=== PATIENT | male | born 1935 | race Caucasian/White ===

== ENCOUNTER → 2016-12-03 | Outpatient (CLI) | payer MEDICARE, OTHER ==
[~2016-12-03] MED LIST: BACTRIM DS1 TAB PO; CALCIUM WITH VIT D PO; CLARITIN10 MG PO; COMPAZINE10 MG PO; DELTASONE20 MG PO; GLUCOSAMINE-CH1 EA14 PO; NEURONTIN300 MG PO; PAIN & FEVER325 MG PO; RANITIDINE HCL150 M1 PO; THERA-VITE W/ B1 TAB PO; VITAMIN C500 M1 PO; VITAMIN D2000 UNIT PO; ZYLOPRIM300 MG PO; [UNRECOGNIZED DRUG - OTHER] PO
== END | disposition disaster alternative care site (69) ==
LOC: GRAD 08:45
DX: R22.31 Localized swelling, mass and lump, right upper limb (principal); R91.8 Other nonspecific abnormal finding of lung field

== ENCOUNTER → 2016-12-25 | Outpatient (CLI) | payer MEDICARE, OTHER | LOC: LHSC 17:10 | DX: M25.811 Other specified joint disorders, right shoulder (principal) ==

== ENCOUNTER → 2017-01-28 | Outpatient (CLI) | payer MEDICARE, OTHER ==
--- NOTE | ~2017-01-28 | ECHO ---
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 Normal LV/RV size and systolic function. The estimated left ventricular ejection fraction is 60-65%. No pericardial effusion. Procedure Type of Study TTE procedure:2D Echocardiogram. Procedure Date Date: 01/28/2017 Start: 12:13 PM Study Location: Echo Lab Technical Quality: Good visualization Indications:High Risk Medication Use. Appropriate Use Criteria: 8 Patient Status: Routine Rhythm: NSR HR: 66 bpm BP: 171/74 mmHg M-Mode/2D Measurements LV Diastolic Dimension: 3.99 cm LV Systolic Dimension: 2.93 cm LV Septum Diastolic: 1.37 cm LV PW Diastolic: 1.32 cm AO Root Dimension: 3.2 cm LA Dimension: 3.1 cm RV Diastolic Dimension: 3.33 cm EF Estimated: 60 % LVOT: 2.2 cm Findings Left Ventricle The left ventricle is normal in size . Pericardial Effusion No pericardial effusion. Signature dtt: EULALIO DIALLO dtd: 01/28/17 1213 Physician Self Edit
== END | disposition disaster alternative care site (69) ==
LOC: GKIC 09:37 → GCAR 12:00
DX: C85.18 Unspecified B-cell lymphoma, lymph nodes of multiple sites (principal); M79.89 Other specified soft tissue disorders; M89.9 Disorder of bone, unspecified
CPT/HCPCS: A9552

== ENCOUNTER → 2017-02-05 | Outpatient (CLI) | payer MEDICARE, OTHER ==
--- NOTE | 2017-02-05 15:22 | NUR ---
D:Orders received for patient to receive intrathecal methotrexate during lumbar puncture procedure in radiology. I:Plans for procedure and chemotherapy were reviewed with the patient and the patient agreed to proceed. The Chemotherapy Checklist was completed. The Anti-Cancer Hazardous Drug Consent form was signed by the patient. The lumbar puncture procedure was performed by Ilir Renae PA-C. The methotrexate was given over 4 min without difficulty by Manuel MCKEON. R:The patient tolerated the procedure well but did have some neck pain r/t rods in neck and positioning during the procedure. Yoly teaching information was given to and reviewed with the patient, his spouse and his daughter, Shahrzad. They verbalized understanding of the information and denied further questions. P:The patient will recover in [facility] and, if no complications, be dismissed to home in 1 hr. Manuel MCKEON
== END | disposition disaster alternative care site (69) ==
LOC: GPOC 02-04 14:00
PROC: 0Q903ZZ Drainage of Lumbar Vertebra, Percutaneous Approach (ICD-10-PCS; principal; 2017-02-05)
DX: C85.80 Other specified types of non-Hodgkin lymphoma, unspecified site (principal)
CPT/HCPCS: J8610

== ENCOUNTER → 2017-02-26 | Day surgery (SDC) | payer MEDICARE, OTHER ==
[~2017-02-26] VITALS: Ht 182.9 cm; Wt 84.4 kg
== END | disposition disaster alternative care site (69) ==
LOC: GPOC 02-25 10:00
PROC: 009U3ZZ Drainage of Spinal Canal, Percutaneous Approach (ICD-10-PCS; principal; 2017-02-26)
PROC: B01BZZZ Fluoroscopy of Spinal Cord (ICD-10-PCS; 2017-02-26)
DX: C85.80 Other specified types of non-Hodgkin lymphoma, unspecified site (principal); D70.9 Neutropenia, unspecified; Z90.79 Acquired absence of other genital organ(s); Z96.641 Presence of right artificial hip joint; Z98.1 Arthrodesis status; Z98.890 Other specified postprocedural states
CPT/HCPCS: J8610

== ENCOUNTER → 2017-03-20 | Outpatient (CLI) | payer MEDICARE, OTHER | END | disposition disaster alternative care site (69) | LOC: GOPP 03-19 14:00 | PROC: 0S903ZZ Drainage of Lumbar Vertebral Joint, Percutaneous Approach (ICD-10-PCS; principal; 2017-03-20) | DX: C85.80 Other specified types of non-Hodgkin lymphoma, unspecified site (principal); D70.9 Neutropenia, unspecified | CPT/HCPCS: J1720; J8610 ==

== ENCOUNTER → 2017-04-10 | Outpatient (CLI) | payer MEDICARE, OTHER | END | disposition disaster alternative care site (69) | LOC: GPOC 04-07 15:00 | PROC: 009Y3ZX Drainage of Lumbar Spinal Cord, Percutaneous Approach, Diagnostic (ICD-10-PCS; principal; 2017-04-10) | DX: C85.80 Other specified types of non-Hodgkin lymphoma, unspecified site (principal); D70.9 Neutropenia, unspecified | CPT/HCPCS: J1720; J8610 ==

== ENCOUNTER → 2017-05-01 | Outpatient (CLI) | payer MEDICARE, OTHER | END | disposition disaster alternative care site (69) | LOC: GPOC 04-29 14:00 → GOPP 04-29 14:00 | PROC: 0Q903ZZ Drainage of Lumbar Vertebra, Percutaneous Approach (ICD-10-PCS; principal; 2017-05-01) | DX: C85.80 Other specified types of non-Hodgkin lymphoma, unspecified site (principal); D70.9 Neutropenia, unspecified | CPT/HCPCS: J1720; J8610 ==